=== PATIENT | male | born 1970 | race Caucasian/White ===

== ENCOUNTER 2020-05-29 21:36 | Emergency (ER) | payer OTHER ==
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
[2020-05-29 21:49] VITALS: BP 181/107; PULSE 82; TEMP 98.5; BMI 26.6
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
== END 2020-05-29 22:25 | disposition home or self-care (01) ==
LOC: JER 21:36 → JERFT 21:36
DX: M25.531 Pain in right wrist (principal); M25.521 Pain in right elbow
CPT/HCPCS: 73070-TC-RT-FY; 73110-TC-RT-FY; 99284-25

== ENCOUNTER 2020-10-18 09:48 | Day surgery (SDC) | payer OTHER ==
[2020-10-15 10:18] VITALS: BMI 29.7
[2020-10-18] MEDS ORDERED: MORPHINE 5 MG/10 ML AMP - FOR COMPOUNDING USE ONLY ONE (10:15)
[2020-10-18] MEDS ORDERED: BUPIVACAINE HCL 150 ML ONE (10:19)
[2020-10-18] MEDS ORDERED: PROPOFOL 20 ML ONE ×6 (10:38→11:18)
[2020-10-18] MEDS ORDERED: MIDAZOLAM HCL 2 MG/2 ML SINGLE DOSE VIAL ONE (10:38)
[2020-10-18] MEDS ORDERED: BUPIVACAINE HCL/PF 0.5% (5 MG/ML) 30 ML VIAL IJ ONE (11:04)
[2020-10-18] MEDS ORDERED: KETOROLAC TROMETHAMINE 30 MG/1 ML VIAL ONE (11:04)
[2020-10-18] MEDS ORDERED: EPINEPHrine 1:1,000 1 MG/1 ML - 30ML VIAL (INJECTION) ONE (11:06)
[2020-10-18] MEDS ORDERED: oxyCODONE HCL 5 MG TABLET PO PRN (12:05)
[2020-10-18] MEDS ORDERED: PROMETHAZINE HCL 25 MG/1 ML VIAL IVPUSH PRN (12:05)
[2020-10-18] MEDS ORDERED: ONDANSETRON 4 MG/2 ML VIAL IVPUSH PRN (12:05)
[2020-10-18] MEDS ORDERED: LACTATED RINGERS SOLUTION 1,000 ML IV SCH (12:15)
[2020-10-18] MEDS ORDERED: oxyCODONE HCL 5 MG TABLET ONE (13:14)
[2020-10-18 13:36] VITALS: TEMP 97.8
[2020-10-18 14:18] VITALS: BP 129/87; PULSE 70
== END 2020-10-18 14:15 | disposition home or self-care (01) ==
LOC: FASU 09:48
PROVIDERS: ATTEND Orthopaedic Surgery
PROC: 0SBD4ZZ Excision of Left Knee Joint, Percutaneous Endoscopic Approach (ICD-10-PCS; 2020-10-18)
PROC: 0SBD4ZZ Excision of Left Knee Joint, Percutaneous Endoscopic Approach (ICD-10-PCS; principal; 2020-10-18 11:30)
DX: S83.242A Other tear of medial meniscus, current injury, left knee, initial encounter (principal); X58.XXXA Exposure to other specified factors, initial encounter; Y93.9 Activity, unspecified; Y92.9 Unspecified place or not applicable; Y99.9 Unspecified external cause status
CPT/HCPCS: 88304-TC; 94760